=== PATIENT | female | born 1955 | race Caucasian/White ===

== ENCOUNTER 2018-03-31 07:31 | Day surgery (SDC) | payer OTHER ==
[~2018-03-31 07:31] MED LIST: LIDOCAINE 2% (SDV) 5 ML INJ; SUCCINYLCHOLINE CHLORIDE 100 MG/5 ML SYG IV
[2018-03-31] MEDS ORDERED: SOD CHLORIDE 0.9% 1,000 ML IV (09:00)
[2018-03-31] MEDS ORDERED: CEFAZOLIN 2 GM/50 ML (PMX) 50 ML IVPB (09:00)
[2018-03-31] MEDS ORDERED: ROCURONIUM 50 MG INJ (10:55)
[2018-03-31] MEDS ORDERED: PROPOFOL 20 ML (10:55)
[2018-03-31] MEDS ORDERED: MIDAZOLAM 1 MG/ML 2 ML INJ (10:55)
[2018-03-31] MEDS ORDERED: CEFAZOLIN 1 GM INJ (11:06)
[2018-03-31] MEDS: ISOSULFAN BLUE 1% 5 ML INJ SC (11:33)
[2018-03-31] MEDS ORDERED: PHENYLephrine (100 MCG/ML) 5ML SYG (11:57)
[2018-03-31] MEDS ORDERED: DEXAMETHASONE 4 MG/ML 1 ML INJ (12:08)
[2018-03-31] MEDS ORDERED: ONDANSETRON 4 MG INJ (12:08)
[2018-03-31] MEDS: HYDROCODONE/APAP (7.5/325) TAB PO (14:06)
== END 2018-03-31 14:40 | disposition home or self-care (01) ==
LOC: SDS 07:31
DX: C50.912 Malignant neoplasm of unspecified site of left female breast (principal); R59.0 Localized enlarged lymph nodes; I10 Essential (primary) hypertension; E78.5 Hyperlipidemia, unspecified
CPT/HCPCS: 19301; 82962; 88307; 88313

== ENCOUNTER 2018-05-30 23:02 | Emergency (ER) | payer OTHER | END 2018-05-31 02:28 | disposition home or self-care (01) | LOC: FTE 23:02 | DX: S92.514A Nondisplaced fracture of proximal phalanx of right lesser toe(s), initial encounter for closed fracture (principal); S92.534A Nondisplaced fracture of distal phalanx of right lesser toe(s), initial encounter for closed fracture; E11.9 Type 2 diabetes mellitus without complications; W22.8XXA Striking against or struck by other objects, initial encounter; Y92.9 Unspecified place or not applicable; Z79.84 Long term (current) use of oral hypoglycemic drugs | CPT/HCPCS: 73660; 99283-25 ==

== ENCOUNTER 2019-01-06 08:56 | Day surgery (SDC) | payer OTHER ==
[~2019-01-06 08:56] MED LIST changes: +EPHEDrine 25 MG/5 ML SYG; -LIDOCAINE 2% (SDV) 5 ML INJ; -SUCCINYLCHOLINE CHLORIDE 100 MG/5 ML SYG IV
[2019-01-06] MEDS ORDERED: SOD CHLORIDE 0.9% 1,000 ML IV (09:00)
[2019-01-06] MEDS ORDERED: MEPERIDINE 25 MG INJ IV (12:00)
[2019-01-06] MEDS ORDERED: LABETALOL HCL 20MG INJ IV (12:00)
[2019-01-06] MEDS ORDERED: OXYCODONE/ACETAMINOPHEN (5/325) TAB PO ×2 (12:00)
[2019-01-06] MEDS ORDERED: DIPHENHYDRAMINE 50 MG INJ IV (12:00)
[2019-01-06] MEDS ORDERED: HYDROmorphONE 1 MG/5 ML IV SYRINGE IV ×2 (12:00)
[2019-01-06] MEDS ORDERED: FENTAnyl 50 MCG/ML VIAL IV ×3 (12:00)
[2019-01-06] MEDS ORDERED: hydrALAzine 20 MG INJ IV (12:00)
[2019-01-06] MEDS ORDERED: MIDAZOLAM 1 MG/ML 2 ML INJ (12:04)
[2019-01-06] MEDS ORDERED: PROPOFOL 20 ML ×2 (12:10→13:16)
[2019-01-06] MEDS ORDERED: NEOSTIGMINE 3 MG/3 ML SYRINGE (12:10)
[2019-01-06] MEDS ORDERED: ROCURONIUM 50 MG INJ (12:10)
[2019-01-06] MEDS ORDERED: METOCLOPRAMIDE 10 MG INJ (12:10)
[2019-01-06] MEDS ORDERED: CEFAZOLIN 1 GM INJ ×2 (12:10→12:31)
[2019-01-06] MEDS ORDERED: GLYCOPYRROLATE 0.4 MG INJ (12:10)
[2019-01-06] MEDS ORDERED: ONDANSETRON 4 MG INJ (12:10)
[2019-01-06] MEDS ORDERED: HYDROmorphONE 2 MG/ML SYG (12:30)
[2019-01-06] MEDS ORDERED: HYDROCODONE/APAP (7.5/325) TAB PO (13:30)
[2019-01-06] MEDS: ONDANSETRON 4 MG INJ IV (13:59)
[2019-01-06] MEDS: HYDROmorphONE 1 MG/5 ML IV SYRINGE IV ×2 (14:00→14:15)
== END 2019-01-06 15:20 | disposition home or self-care (01) ==
LOC: SDS 08:56
DX: C50.912 Malignant neoplasm of unspecified site of left female breast (principal); I10 Essential (primary) hypertension; E11.9 Type 2 diabetes mellitus without complications; Z79.84 Long term (current) use of oral hypoglycemic drugs
CPT/HCPCS: 19301; 82962; 88307